=== PATIENT | female | born 1945 | race Caucasian/White ===

== ENCOUNTER → 2020-11-23 | Outpatient (CLI) | payer MEDICARE ==
--- NOTE | 2020-11-23 08:59 | KCIC ---
EXAM: DUAL ENERGY X-RAY ABSORPTIOMETRY (DEXA). HISTORY: Postmenopausal screening. FINDINGS: The lowest measured T-score is -0.4 in the left hip, based on a bone mineral density of 0.8 95 g/cm^2. Refer to the worksheets for full detail. No comparison examinations are available. IMPRESSION: 1. Normal. Bone mineral density yields a T-score of -1.0 or greater. Fracture risk is low. 2. FRAX report: Not calculated. METHODOLOGY: Dual energy x-ray absorptiometry was performed to measure bone mineral density. The foll owing analysis is based on the 2019 Official Positions of the International Society for Clinical Dens itometry: Measurements of the hips and the average of L1-L4 are preferred. When the spine and/or hip cannot be feasibly measured or interpreted, or in the setting of hyperparathyroidism, distal radial bone minera l density may be measured. The lumbar spine T-score is based on the average bone mineral density of L1-L4. In the setting of art ifact or anatomic abnormality, some lumbar levels may be excluded, and the remaining levels used for calculation. A single lumbar level is not used for diagnosis, and if only a single level is available for assessment, another anatomic site will be used to assign a diagnosis. The hip T-score is based on the bone mineral density measurement of the femoral neck or total proxima l femur of either side, whichever is lowest. Bilateral mean values are not used for diagnosis. The forearm T-score is derived from 33% of the distal radius of the nondominant forearm. Electronically signed by: Michelle Jean MD (11/23/2020 8:57 AM) [id number]
== END ==
LOC: KCIC DEXA 08:03
PROVIDERS: ATTEND Family Medicine
DX: N95.9 Unspecified menopausal and perimenopausal disorder (principal)
CPT/HCPCS: 77080

== ENCOUNTER 2021-03-01 05:29 | Emergency (ER) | payer MEDICARE ==
[~2021-03-01] VITALS: Ht 167.6 cm; Wt 81.8 kg
[2021-03-01 06:10] VITALS: BP 159/66
[2021-03-01] MEDS ORDERED: OXYC-325 PO (06:22)
--- NOTE | 2021-03-01 06:22 | PHYS DOC ---
General Adult EDM: Chief Complaint: BACK PAIN - NO INJURY HPI: HPI: Patient is a 76 year old female presents with the chief complaint of acute exacerbation of chronic back pain. Pain is located left flank and radiated to right shoulder. Patient states current pain in consistent with her chronic pain. Denies any new injuries. States she has been taking OTC tyelnol with no relief. States she took husbands old percocet 5/325 and patient is requesting a prescription. Review of Systems: Review of Systems: Review of systems: Constitutional symptoms- No fever, no chills. Eyes- No Discharge, No Visual Loss Respiratory symptoms- No shortness of breath, No wheezing, No Dyspnea on Exertion Cardiovascular Systems; No chest pain, No Palpitations, No syncope Gastrointestinal symptoms: NO abdominal pain, no nausea, no vomiting or diarrhea. Genitourinary symptoms: No dysuria. Musculoskeletal symptoms: Positive back pain No extremity pain. NEUROLOGICAL Symptoms: No headache, no generalized weakness; No focal Weakness Heart Score: C/O Chest Pain: N/A Risk Factors: Risk Factors: DM, Current or recent (<one month) smoker, HTN, HLP, family history of CAD, obesity. Risk Scores: Score 0 - 3: 2.5% MACE over next 6 weeks - Discharge Home Score 4 - 6: 20.3% MACE over next 6 weeks - Admit for Clinical Observation Score 7 - 10: 72.7% MACE over next 6 weeks - Early Invasive Strategies Physical Exam: PE: General: alert, no acute distress. Skin: warm, dry and intact. Head:: Normocephalic, atraumatic. Neck: Trachea midline. Eyes: EOMI, Normal conjunctiva, No drainage CARDIOVASCULAR: Regular rate and rhythm RESPIRATORY: No respiratory distress Back: Full range of motion. pain located right back, no midline tenderness MUSCULOSKELETAL: Full range of motion of bilateral upper and lower extremities. GASTROINTESTINAL: Abdomen soft without rebound or guarding. NEUROLOGICAL: Alert and noted to person, place and time. No neurological deficits observed Psychiatric: Cooperative. Normal judgment EKG: EKG: [] Radiology/Procedures: Radiology/Procedures: [] Course & Med Decision Making: Course & Med Decision Making Pertinent Labs and Imaging studies reviewed. (See chart for details) [] Patient evaluated for chief complaint. Based upon HPI and physical exam no emergent work-up indicated. Patient was prescribed percocet as requested. Kevan Disclaimer: Kevan Disclaimer: This electronic medical record was generated, in whole or in part, using a voice recognition dictation system. Departure Departure Impression: Primary Impression: Back pain Additional Impression: Chronic pain Disposition: HOME / SELF CARE / HOMELESS Condition: STABLE Referrals: ADWOA MARES MD (PCP) Patient Instructions: Back Pain, Adult, Chronic Back Pain Scripts Oxycodone HCl/Acetaminophen (Percocet 5-325 mg Tablet) 1 Each Tablet 1 TAB PO PRN TID MDD 3 Tablet(s) for 5 Days, #30 TAB 0 Refills Prov: DAQUAN HANKS DO 03/01/21 DAQUAN HANKS DO Mar 01, 2021 06:22
== END 2021-03-01 06:25 | disposition home or self-care (01) ==
LOC: ER 05:29
DX: M54.89 Other dorsalgia (principal); G89.29 Other chronic pain
CPT/HCPCS: 99284

== ENCOUNTER → 2021-03-21 | Outpatient (CLI) | payer MEDICARE ==
[2021-03-01 06:10] VITALS: BP 159/66
[~2021-03-21] MED LIST: IOHEXOL 300 MG/ML 100ML VIAL. IV ONE; OXYC-325 PO
--- NOTE | 2021-03-21 10:24 | RAD ---
EXAM: CT head without and with contrast INDICATION: Memory change COMPARISON: None TECHNIQUE: Axial CT imaging through the head before and after the administration of 70 mL Omnipaque 3 00 contrast. Sagittal and coronal reformats were obtained. One or more of the following individualized dose reduction techniques were utilized for this examinat ion: 1. Automated exposure control 2. Adjustment of the mA and/or kV according to patient size 3. Use of iterative reconstruction technique. FINDINGS: The ventricles and sulci are mildly enlarged. Mason-white matter differentiation is maintained. No int racranial hemorrhage, acute infarct, or mass lesion. There is no abnormal enhancement. The skull and scalp are intact. Paranasal sinuses and mastoid air cells are clear. Globes and orbits are intact. IMPRESSION: No acute intracranial abnormality. Electronically signed by: Carley Duncan MD (03/21/2021 10:22 AM) [id number]
== END ==
LOC: CT 08:34
PROVIDERS: ATTEND Nurse Practitioner Family
DX: R41.3 Other amnesia (principal); I51.7 Cardiomegaly
CPT/HCPCS: 70470; Q9967

== ENCOUNTER → 2021-03-27 | Outpatient (CLI) | payer MEDICARE ==
[2021-03-01 06:10] VITALS: BP 159/66
[~2021-03-27] MED LIST changes: -IOHEXOL 300 MG/ML 100ML VIAL. IV ONE
--- NOTE | 2021-03-27 14:55 | KCIC ---
Bilateral digital screening mammograms: Reason for examination: Routine screening. New baseline. Interpretation was made with the benefit of CAD. The skin and nipples show no abnormalities. No abnormal axillary lymph nodes are seen. The breast par enchyma shows scattered fibroglandular density. (Breast density: Category B.) There are small subcent imeter nodular densities seen in the inferior left breast at approximately the 4:00 B and 6:00 B posi tions. Further evaluation with ultrasound is recommended. There are no other dominant masses, suspici ous calcifications or architectural distortions. Some benign calcifications are present. Impression: Small subcentimeter nodular densities at the 4:00 B and 6:00 B positions of the left breast. Recommen d further evaluation with ultrasound. BI-RADS Category 0: Incomplete. Needs additional imaging evaluation. "Our facility is accredited by the [employer] Mammography [employer]." This patient's information has been entered into a reminder system for the patient to be notified wit h the results of her examination and a target date for the next mammogram. Electronically signed by: Melisa Luke MD (03/27/2021 2:53 PM) [email or web address]
== END ==
LOC: KCIC MAMMO 12:50
PROVIDERS: ATTEND Family Medicine
DX: Z12.31 Encounter for screening mammogram for malignant neoplasm of breast (principal); N63.23 Unspecified lump in the left breast, lower outer quadrant
CPT/HCPCS: 77063; 77067

== ENCOUNTER → 2021-04-05 | Outpatient (CLI) | payer MEDICARE ==
--- NOTE | 2021-04-05 13:23 | KCIC ---
Targeted/limited left breast ultrasound. INDICATION: Screening mammogram shows small subcentimeter masses in the 4:00 B and 6:00 B positions o f the left breast. The areas of concern on mammogram, 4 to 6:00 region of the left breast and left axilla were evaluated . No discrete breast mass is seen. No abnormal shadowing identified. There is no axillary adenopathy. IMPRESSION: No discrete mass is identified on ultrasound there is a very small mass is seen on mammog higinio in the left breast the appearance of masses on mammogram probably benign. A follow-up diagnostic left mammogram in 6 months is recommended. ASSESSMENT: BI-RADS 3. Probably benign findings. RECOMMENDATION: Follow-up diagnostic left mammogram in 6 months. Results were given to the patient at the time of the examination. Patient information will be entered into the reminder system with a target recall date for her follow-up mammogram. A reminder letter wi ll be sent. Electronically signed by: Deanna Escamilla MD (04/05/2021 1:21 PM) [email or web address]
== END ==
LOC: KCIC US 10:51
PROVIDERS: ATTEND Family Medicine
DX: R92.2 Inconclusive mammogram (principal)
CPT/HCPCS: 76641

== ENCOUNTER → 2021-04-12 | Outpatient (CLI) | payer MEDICARE ==
--- NOTE | 2021-04-12 15:47 | CARD ---
MR#: [id number] Date of Study: 04/12/2021 Ordering Physician: HUGO CHOUDHURY, Referring Physician: HUGO CHOUDHURY, Tech: Trice Newman [facility] APPROVED REPORT EXAM: Two-dimensional and M-mode echocardiogram with Doppler and color Doppler. Other Information Quality : AverageHR: 72bpm Rhythm : NSR INDICATION Palpitations 2D DIMENSIONS RVDd3.1 (2.9-3.5cm)Left Atrium(2D)3.4 (1.6-4.0cm) IVSd1.2 (0.7-1.1cm)Aortic Root(2D)3.5 (2.0-3.7cm) LVDd4.0 (3.9-5.9cm)LVOT Diameter2.1 (1.8-2.4cm) PWd1.0 (0.7-1.1cm)LVDs2.6 (2.5-4.0cm) FS (%) 34.5 %SV44.8 ml LVEF(%)64.2 (>50%) Aortic Valve AoV Peak Rashard.117.0cm/sAoV VTI23.4cm AO Peak GR.5.5mmHgLVOT Peak Rashard.72.8cm/s AO Mean GR.2mmHgAVA (VMAX)2.18cm2 Mitral Valve MV E Nunxgwgp40.6cm/sMV DECEL [id number] MV A Gphwkzsz51.1cm/sE/A Ratio0.7 Pulmonary Valve PV Peak Qwoharoi38.3cm/s Tricuspid Valve TR P. Kblkbqoo722pf/sTR Peak Gr.21mmHg Pulmonary Vein S1 Hyosqbwi18.2cm/sD2 Jkeobmmq10.3cm/s PVa [id number] LEFT VENTRICLE The left ventricle is normal size. There is borderline to mild concentric left ventricular hypertroph y. The left ventricular systolic function is normal. Estimated ejection fraction 60%. There is faisal l LV segmental wall motion. Transmitral Doppler flow pattern is Grade I-abnormal relaxation pattern. RIGHT VENTRICLE The right ventricle is normal size. There is normal right ventricular wall thickness. The right ventr icular systolic function is normal. ATRIA The left atrium size is normal. The right atrium size is normal. The interatrial septum is intact wit h no evidence for an atrial septal defect or patent foramen ovale as noted on 2-D or Doppler imaging. AORTIC VALVE The aortic valve is normal in structure and function. Doppler and Color Flow revealed no significant aortic regurgitation. There is no significant aortic valvular stenosis. MITRAL VALVE The mitral valve is normal in structure and function. There is no evidence of mitral valve prolapse. There is no mitral valve stenosis. Doppler and Color-flow revealed trace to mild mitral regurgitation . TRICUSPID VALVE The tricuspid valve is normal in structure and function. Doppler and Color Flow revealed mild tricusp id regurgitation. Estimated PAP 25 mmHg. There is no tricuspid valve stenosis. PULMONIC VALVE The pulmonary valve is normal in structure and function. Doppler and Color Flow revealed mild pulmoni c valvular regurgitation. GREAT VESSELS The aortic root is normal in size. The ascending aorta is normal in size. The IVC is normal in size a nd collapses >50% with inspiration. PERICARDIAL EFFUSION There is no evidence of significant pericardial effusion. Critical Notification Critical Value: No <Conclusion> The left ventricular systolic function is normal. Estimated ejection fraction 60%. There is normal LV segmental wall motion. Transmitral Doppler flow pattern is Grade I-abnormal relaxation pattern. Trace to mild mitral regurgitation. Mild tricuspid regurgitation. Estimated PAP 25 mmHg. There is no evidence of significant pericardial effusion. Signed by : Yovani Montez, Electronically Approved : 04/12/2021 15:46:27
== END ==
LOC: ECHO 10:23
PROVIDERS: ATTEND Internal Medicine Cardiovascular Disease
DX: I08.8 Other rheumatic multiple valve diseases (principal); R01.1 Cardiac murmur, unspecified
CPT/HCPCS: 93306